=== PATIENT | male | born 1955 | race Caucasian/White ===

== ENCOUNTER 2016-10-28 13:23 | Emergency (ER) | payer BC ==
[2016-10-28] MEDS ORDERED: MINERAL OIL ENEMA 133 ML BTL RECTAL ONE (14:34)
== END 2016-10-28 17:28 | disposition home or self-care (01) ==
LOC: ER 13:23
DX: K59.03 Drug induced constipation (principal); T40.605A Adverse effect of unspecified narcotics, initial encounter; N40.1 Benign prostatic hyperplasia with lower urinary tract symptoms; R33.8 Other retention of urine
CPT/HCPCS: 36415; 51702; 80053; 81003; 85025